=== PATIENT | male | born 1985 | race Caucasian/White ===

== ENCOUNTER 2016-10-15 18:52 | Emergency (ER) | payer OTHER ==
[~2016-10-15] VITALS: Ht 172.7 cm; Wt 152.2 kg
[2016-10-15 20:38] LABS: CHLORIDE 103 mEq/L (99-109); HEMATOCRIT 48.4 % (38.0-50.0); MCH 27.3 PG (29.0-34.0); MCHC 32.9 G/DL (30.0-36.0); MEAN PLAT.VOLUME 10.3 uM^3 (9.0-12.4); PLATELET COUNT 355 K/uL (156-360); POTASSIUM 4.1 mEq/L (3.7-5.4); RBC DIS.WIDTH-CV 14.5 % (11.8-14.6); RBC DIS.WIDTH-SD 43.3 % (39-53); RED BLOOD COUNT 5.83 M/uL (4.00-5.50); SODIUM 139 mEq/L (136-147); WHITE BLOOD COUNT 15.6 K/uL (4.1-10.2)
[2016-10-15 20:40] LABS: GLUCOSE 86 mg/dL (70-99)
[2016-10-15 20:41] LABS: ANION GAP 12 MEQ/L (2-14)
[2016-10-15 20:42] LABS: TOTAL BILIRUBIN 0.7 mg/dL (0.0-1.0)
[2016-10-15 20:43] LABS: ALKALINE PHOSPHATASE 94 IU/L (3-129)
[2016-10-15 20:44] LABS: GFR ESTIMATE (CALCULATED) > 59 mL/min/
[2016-10-15 20:45] LABS: UREA NITROGEN (BUN) 15 mg/dL (9-23)
[2016-10-15] MEDS ORDERED: TRAMADOL HCL50 MG PO (22:06)
[2016-10-15] MEDS ORDERED: SKELAXIN800 MG PO (22:13)
[2016-10-15 22:16] VITALS: BP 128/85
== END 2016-10-15 22:17 | disposition home or self-care (01) ==
LOC: EME 18:52
PROVIDERS: Physician Assistant
DX: R10.12 Left upper quadrant pain (principal); M54.5 Low back pain
CPT/HCPCS: 72100; 74174; 80053; 85027; 99281; 99285; J7030